=== PATIENT | female | born 1995 | race Two or more races ===

== ENCOUNTER → 2025-04-08 | Outpatient (CLI) | payer SELFPAY ==
[2025-04-08 16:01] LABS: PLATELET COUNT, AUTOMATED 234 10^3/uL (150-450)
[2025-04-08 17:00] LABS: HIV 1&2 SCREEN NEGATIVE (NEGATIVE)
[2025-04-08 17:08] LABS: HEPATITIS C VIRUS ABY INDEX 0.02 INDEX (<0.8)
== END ==
LOC: M PLALAB 12:10
PROVIDERS: ATTEND Nurse Practitioner Family
DX: Z34.80 Encounter for supervision of other normal pregnancy, unspecified trimester (principal)

== ENCOUNTER → 2025-04-08 | Outpatient (REF) | payer OTHER ==
[2025-04-08 14:09] LABS: Trichomonas vaginalis (AMP) NOT DETECTED (NEGATIVE)
[2025-04-08 14:32] LABS: GC DNA AMPLIFICATION NEGATIVE (NEGATIVE)
== END ==
LOC: M PLALAB 11:22
PROVIDERS: ATTEND Nurse Practitioner Family
DX: Z34.80 Encounter for supervision of other normal pregnancy, unspecified trimester (principal)

== ENCOUNTER → 2025-05-06 | Outpatient (CLI) | payer OTHER | LOC: M PLALAB 14:34 | PROVIDERS: ATTEND Student in an Organized Health Care Education/Training Program | DX: Z34.82 Encounter for supervision of other normal pregnancy, second trimester (principal); Z3A.00 Weeks of gestation of pregnancy not specified ==

== ENCOUNTER → 2025-05-07 | Outpatient (REF) | payer OTHER | LOC: M SFHCPLAZ 15:27 | PROVIDERS: ATTEND Student in an Organized Health Care Education/Training Program | DX: Z34.82 Encounter for supervision of other normal pregnancy, second trimester (principal) ==

== ENCOUNTER → 2025-05-15 | Outpatient (CLI) | payer OTHER | LOC: M RAD 11:04 | PROVIDERS: ATTEND Student in an Organized Health Care Education/Training Program | DX: Z34.82 Encounter for supervision of other normal pregnancy, second trimester (principal) ==